=== PATIENT | male | born 1980 | race Hispanic/Latino ===

== ENCOUNTER 2024-04-24 21:36 | Emergency (ER) | payer SELFPAY ==
[~2024-04-24] VITALS: Ht 170.2 cm; Wt 72.0 kg
[2024-04-24] VITALS (9 sets, daily range): BP systolic 95–125; BP diastolic 63–99
[2024-04-24] MEDS ORDERED: ASPIRIN 81 MG/TAB PO ONE (21:55)
[2024-04-24 22:14] LABS: BASO% 0.7 % (0-3); EOS% 4.9 % (0-8); HEMATOCRIT 45.2 % (39.0-50.0); HEMOGLOBIN 14.8 g/dl (14.0-18.0); IMMATURE GRANULOCYTES 0.2 % (0.0-5.0); LYMPH% 36.2 % (15-41); MEAN CELL VOLUME 80.9 fL CALC (80.0-100.0); MEAN CORPUSCULAR HGB 26.5 pG CALC (26.0-32.0); MEAN CORPUSCULAR HGB CONC 32.7 g/dL CAL (32.0-36.0); MONO% 6.7 % (2-13); NEUT# 3.07 thou/uL (1.82-7.42); NEUT% 51.3 % (42-76); RED BLOOD COUNT 5.59 mill/uL (4.70-6.10); RED CELL DISTRI WIDTH 12.7 % (11.5-15.5)
[2024-04-24 22:30] LABS: ALBUMIN 4.7 g/dL (3.2-5.0); ALKALINE PHOSPHATASE 66 u/l (38-126); ANION GAP 12 (6-22 (CALC)); BILIRUBIN, TOTAL 0.6 mg/dL (0.2-1.3); BUN 16 mg/dL (9-20); BUN/CREATININE RATIO 15 (12-20 (CALC)); CARBON DIOXIDE 25 mmol/l (22-30); CHLORIDE 108 mmol/l (95-108); ESTIMATED GFR 97 ML/MIN (>=90 (CALC)); LIPASE 152 u/l (23-300); POTASSIUM 3.6 mmol/l (3.5-5.1); SGOT/AST 32 u/l (17-59); SODIUM 141 mmol/l (137-146); TOTAL PROTEIN 8.1 g/dL (6.3-8.2)
[2024-04-24 22:32] LABS: ACT PARTIAL THROMBO TIME 28.6 SECONDS (20.0-32.5); INTERNATIONAL NORMALIZED RATIO 1.2 RATIO (0.7-1.3)
[2024-04-24 22:36] LABS: PROTHROMBIN TIME 11.7 SECONDS (9.0-12.5)
[2024-04-24 22:37] LABS: D-DIMER 0.17 mg/L (0.19-0.60)
== END 2024-04-24 23:40 | disposition home or self-care (01) | DRG 313 ==
LOC: ED 21:36 → EDSEX 21:36 → ED 22:39
PROVIDERS: Family Medicine
DX: R07.9 Chest pain, unspecified (principal); R00.2 Palpitations